=== PATIENT | female | born 1970 | race Caucasian/White ===

== ENCOUNTER 2016-11-29 20:33 | Inpatient (IN) | payer OTHER ==
[~2016-11-29] VITALS: Ht 167.6 cm; Wt 81.6 kg
--- NOTE | ~2016-11-29 | PN ---
Unit #: [id number] #: [id number] Patient: EDNA PERALES [id number] [facility] [address] [place] [address] [id number] I MR#: [id number] NAME: EDNA PERALES ROOM: P125 Age: 46 Sex: F Admission Date: 11/29/2016 : 1970 Attending Physician: Americo Booker M.D. Admitting Physician: Americo Booker M.D. Primary Care Physician: Primary Care Physician Isabel BANKS PROGRESS NOTES DATE 12/01/2016 DISCUSSION The patient remains floridly psychotic but has tolerating upper titration of Zyprexa without complaint. We may need to consider further upper titration as the patient had previously done well at a maximum dose of Zyprexa. The patient appears (1) ____ distressed by her psychotic symptoms. Dictated by... Americo Booker M.D. CB/damir TD: 12/02/2016 01:20 JOB #: [id number] [facility] PROGRESS NOTES Page 1 of 1 X Americo Booker MD PROGRESS NOTE
--- NOTE | ~2016-11-29 | HP ---
Unit #: [id number] #: [id number] Patient: DIAZDENA SHELIA [id number] [place] [address] [id number] I MR#: [id number] NAME: EDNA PERALES ROOM: P125 Age: 46 Sex: F Admission Date: 11/29/2016 : 1970 Attending Physician: Americo Booker M.D. Admitting Physician: Americo Booker M.D. Primary Care Physician: Primary Care Physician No HISTORY AND PHYSICAL HISTORY OF PRESENT ILLNESS The patient states she does not know why she is here. Per chart, it states that patient's informed staff that she had been hallucinating, hearing voices and stated that she needed an exorcism. PAST MEDICAL HISTORY 1. Significant for hypertension. 2. Anxiety. PAST SURGICAL HISTORY None. ALLERGIES Risperdal. SOCIAL HISTORY Negative. FAMILY HISTORY Noncontributory. REVIEW OF SYSTEMS CONSTITUTIONAL: No fever or chills. HEENT: Denies any sore throat, ear pain or runny nose. CARDIOVASCULAR: Denies chest pain, irregular heart rhythm or palpitations. CHEST: Denies shortness of breath or cough. No hemoptysis. GASTROINTESTINAL: Denies nausea, vomiting, diarrhea or chronic constipation. ENDOCRINE: Denies history of increased thirst or urination. No recent significant weight loss or gain. GENITOURINARY: Denies dysuria, frequency, or hematuria. SKIN: Denies any rashes. HEMATOLOGIC: Denies history of increased bleeding or bruising. MUSCULOSKELETAL: Denies any hot, swollen joints. No generalized muscle pain. NEUROLOGIC: Denies problems with vision or speech. No frequent, severe headaches. No numbness, tingling or weakness in any extremities. Denies loss of bladder or bowel control. CURRENT MEDICATIONS 1. Zyprexa 10 mg p.o. q.h.s. 2. Xanax 1 mg p.o. daily. 3. Gabapentin 800 mg p.o. 4 times daily. Unit #: [id number] #: [id number] Patient: EDNA PERALES 4. Lisinopril 20 mg p.o. daily. 5. Claritin 10 mg p.o. daily. 6. Trazodone 50 mg p.o. q.h.s. PHYSICAL EXAMINATION GENERAL: Alert, oriented, in no acute distress, although somewhat lethargic. VITAL SIGNS: Temperature 98.3, heart rate 76, respirations 16, blood pressure 112/73. HEIGHT: 5 feet 6 inches. WEIGHT: 180 pounds. SKIN: Warm and dry without rash or lesion. An abrasion to her left heel. HEENT: Normocephalic. TMs not viewed. Oral and nasal passages clear. Conjunctivae clear. PERRLA. EOMs intact. NECK: Supple without lymphadenopathy or thyromegaly. HEART: Regular rate and rhythm without murmur. LUNGS: Clear. ABDOMEN: Soft, nontender, without masses or hepatosplenomegaly. : Not done. EXTREMITIES: No evidence of cyanosis, clubbing or edema. Moves all without focal deficit. NEUROLOGICAL: Grossly within normal limits. Cranial Nerves: II: Visual anand are intact. III, IV AND : Extraocular movements are intact. Pupils are equal, round and reactive to light. V: Facial sensation is grossly normal. VII: Facial movements and expression are normal. VIII: Auditory acuity grossly intact. IX, X: Uvula is midline. Phonation is normal. XI: Patient shrugs shoulders and turns head normally. XII: Tongue protrudes in the midline. Sensory and Motor Function: Sensory and motor sensation is grossly normal. Motor: moves all extremities well. Coordination: Gait is normal. Deep Tendon Reflexes: Intact. IMPRESSION Psychiatric admission. RECOMMENDATIONS PSYCHIATRIC: Per psychiatrist. MEDICAL: No contraindication to participate in facility's activities. MEDICAL PROGNOSIS Good. Dictated by... Mary Alice Shelley/beulah TD: 11/30/2016 19:38 JOB #: [id number] Unit #: [id number] #: [id number] Patient: DIAZAugust HISTORY AND PHYSICAL Page 1 of 1 X Priscilla Judd APR X HISTORY AND PHYSICAL
--- NOTE | ~2016-11-29 | DS ---
Unit #: [id number] #: [id number] Patient: EDNA PERALES [id number] [place] [address] [id number] I MR#: [id number] NAME: EDNA PERALES ROOM: P125 Age: 46 Sex: F Admission Date: 11/29/2016 : 1970 Discharge Date: 12/06/2016 Attending Physician: Americo Booker M.D. Primary Care Physician: Primary Care Physician No DISCHARGE SUMMARY REASON FOR ADMISSION The patient is a 46-year-old white female with a history of schizoaffective disorder admitted with worsening symptoms of depression and auditory hallucinations. HOSPITAL COURSE The patient was admitted to the [address] [place] [address] and placed on suicide precautions. She complained of severe anxiety and ongoing psychotic symptoms. Zyprexa was rapidly re-titrated to a dose of 30 mg, the dose which had previously addressed the patient's psychotic symptoms. 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 By 12/06, the patient appeared greatly improved. She was agreeable with plan for follow up through auspices of [facility]. The patient was seen during her hospitalization regarding an infected carbuncle on her buttock and was prescribed Keflex for that condition. DISCHARGE DIAGNOSIS Schizoaffective disorder. DISCHARGE MEDICATIONS The patient is discharged on the following medications: 1. Zestril 20 mg daily for hypertension. 2. Claritin 10 mg daily for environmental allergies. 3. Desyrel 50 mg at h.s. p.r.n. insomnia. 4. Xanax 1 mg daily for anxiety. 5. Zyprexa 30 mg at bedtime for psychosis. 6. Keflex 500 mg t.i.d. for skin infection. 7. Neurontin 1200 mg 4 times daily for anxiety. PROGNOSIS Fair. DIET AND ACTIVITY No dietary or physical restrictions placed on the patient at time of discharge. She will follow through the auspices of "[facility]". Dictated by... Unit #: [id number] #: [id number] Patient: EDNA PERALES Americo Booker M.D. CB/beulah TD: 12/06/2016 15:27 JOB #: [id number] DISCHARGE SUMMARY Page 1 of 1 X Americo Booker MD DISCHARGE SUMMARY
--- NOTE | ~2016-11-29 | PN ---
Unit #: [id number] #: [id number] Patient: EDNA PERALES [id number] [facility] [address] [place] [address] [id number] I MR#: [id number] NAME: EDNA PERALES ROOM: P125 Age: 46 Sex: F Admission Date: 11/29/2016 : 1970 Attending Physician: Americo Booker M.D. Admitting Physician: Americo Booker M.D. Primary Care Physician: Primary Care Physician Isabel BANKS PROGRESS NOTES DATE 12/05/2016 DISCUSSION The patient is reporting significant reduction in psychotic symptoms and appears much brighter. Should she sustain progress, discharge should likely take place as early as tomorrow. Dictated by... Americo Booker M.D. CB/beulah TD: 12/05/2016 16:18 JOB #: [id number] [facility] PROGRESS NOTES Page 1 of 1 X Americo Booker MD X PROGRESS NOTE
--- NOTE | ~2016-11-29 | PN ---
Unit #: [id number] #: [id number] Patient: EDNA PERALES [id number] [facility] [address] [place] [address] [id number] I MR#: [id number] NAME: EDNA PERALES ROOM: P125 Age: 46 Sex: F Admission Date: 11/29/2016 : 1970 Attending Physician: Americo Booker M.D. Admitting Physician: Americo Booker M.D. Primary Care Physician: Primary Care Physician Isabel BANKS PROGRESS NOTES DATE 12/03/2016 DISCUSSION The patient's dose of Zyprexa has been increased to 30 mg. She seems to be tolerating the medication without complaint. She continues to complain of anger and anxiety, and we may need to consider upward titration of Neurontin as our next pharmacologic step. Dictated by... Americo Booker M.D. CB/dominik TD: 12/03/2016 14:03 JOB #: [id number] [facility] PROGRESS NOTES Page 1 of 1 X Americo Booker MD PROGRESS NOTE
--- NOTE | ~2016-11-29 | PA ---
Unit #: [id number] #: [id number] Patient: EDNA PERALES [id number] [place] [address] [id number] I MR#: [id number] NAME: EDNA PERALES ROOM: P125 Age: 46 Sex: F Admission Date: 11/29/2016 : 1970 Date of Assessment: 11/30/2016 Attending Physician: Americo Booker M.D. Admitting Physician: Americo Booker M.D. Primary Care Physician: Primary Care Physician No PSYCHIATRIC ASSESSMENT IDENTIFYING INFORMATION The patient is a 46-year-old white female admitted to the hospital with worsening symptoms of psychosis and paranoia. CHIEF COMPLAINT "They have video of me doing things." HISTORY OF PRESENT ILLNESS The patient is a 46-year-old white female with a history of schizoaffective disorder. She was last hospitalized at this facility in December of 2015. The patient's family has reported that the patient has been hearing "evil voices" and has been angry and cussing out her family. The patient reports to this physician today that her family has "videotape of me doing things" but does not elaborate. When last discharged from this facility, the patient was on an aggressive dose of olanzapine 30 mg. The dose of this medication has been reduced to 10 mg at this time. An upward titration would appear to be warranted. For more complete history of present illness, please refer to previously dictated notes. PAST PSYCHIATRIC HISTORY Reviewed, no changes. PAST MEDICAL HISTORY Reviewed, no changes. MEDICATIONS Zyprexa, Xanax, gabapentin, lisinopril, Claritin, and trazodone. ALLERGIES Risperdal. FAMILY HISTORY Reviewed, no changes. SOCIAL HISTORY Reviewed, no changes. MENTAL STATUS EXAMINATION Examination at this time reveals the patient to be a well-developed well-nourished somewhat disheveled white female appearing somewhat older than stated age. She is in no apparent physical distress at the time of examination. She is awake, alert, and oriented in all spheres. Her mood is dysphoric, her affect is flat. Speech is impoverished. There are no Unit #: [id number] #: [id number] Patient: EDNA PERALES gross deficits in memory or cognition are noted. Intelligence is judged to be in the average range based on fund of knowledge. The patient is cooperative throughout the interview. She denies suicidal or homicidal ideation but reports significant symptoms of paranoia. Her judgment and insight appear to be significantly impaired. ASSETS AND LIABILITIES The patient's assets: Motivation for change. Liabilities: Chronicity and severity of illness. DIAGNOSTIC IMPRESSION Schizoaffective disorder. TREATMENT PLAN The patient remains hospitalized for safety and stabilization. We will increase the patient's Zyprexa to 20 mg, and further upward titration may need to be considered. Other medications will be continued. ESTIMATED LENGTH OF STAY 5 to 7 days. Dictated by... Americo Booker M.D. GLENYS/dominik TD: 11/30/2016 14:16 JOB #: [id number] PSYCHIATRIC ASSESSMENT Page 1 of 1 X Americo Booker MD X PSYCHIATRIC ASSESSMENT
--- NOTE | ~2016-11-29 | PN ---
Unit #: [id number] #: [id number] Patient: EDNA PERALES [id number] [facility] [address] [place] [address] [id number] I MR#: [id number] NAME: EDNA PERALES ROOM: P125 Age: 46 Sex: F Admission Date: 11/29/2016 : 1970 Attending Physician: Americo Booker M.D. Admitting Physician: Americo Booker M.D. Primary Care Physician: Primary Care Physician Isabel BANKS PROGRESS NOTES DATE 12/04/2016 DISCUSSION The patient reports some reduction in auditory hallucinations and paranoia with the rapid upward titration of Zyprexa but continues to complain of severe anxiety. She requests an increase in her Zyprexa, and we will go ahead and maximize her dose at 1200 mg 4 times daily. Dictated by... Americo Booker M.D. CB/dominik TD: 12/04/2016 14:43 JOB #: [id number] [facility] PROGRESS NOTES Page 1 of 1 X Americo Booker MD PROGRESS NOTE
--- NOTE | ~2016-11-29 | PN ---
Unit #: [id number] #: [id number] Patient: EDNA PERALES [id number] [facility] [address] [place] [address] [id number] MR#: [id number] NAME: EDNA PERALES ROOM: P125 Age: 46 Sex: F Admission Date: 11/29/2016 : 1970 Attending Physician: Americo Booker M.D. Admitting Physician: Americo Booker M.D. Primary Care Physician: Primary Care Physician Isabel GREEN NOTES DATE OF SERVICE 12/02/2016 DISCUSSION The patient continues to complain of severe anxiety, auditory hallucinations and appears generally distressed by these symptoms. We will go ahead with a dosage increase to 30 mg of Zyprexa in the evening. Dictated by... Americo Booker M.D. CB/damir TD: 12/02/2016 23:28 JOB #: [id number] [facility] GREEN NOTES Page 1 of 1 X Americo Booker MD PROGRESS NOTE
--- NOTE | ~2016-11-29 | CO ---
Unit #: [id number] #: [id number] Patient: EDNA PERALES [id number] [place] [address] [id number] I MR#: [id number] NAME: EDNA PERALES ROOM: [facility] Age: 46 Sex: F Admission Date: 11/29/2016 : 1970 Attending Physician: Americo Booker M.D. Primary Care Physician: Primary Care Physician No Consultation Date: 12/03/2016 CONSULTATION REPORT HISTORY OF PRESENT ILLNESS August reports that yesterday she was using the bathroom and noticed a boil on the right side of her butt. Then, this morning, she has had some pain as well. She has no history of boils and not noticed any oozing of fluid and no bleeding. She has no other complaints. PHYSICAL EXAMINATION CARDIAC: Regular rate and rhythm. No murmurs, gallops, or rubs. RESPIRATORY: Clear to auscultation bilaterally. SKIN: 1 cm boil on right buttocks with redness and no induration. ASSESSMENT AND PLAN Boil. We will begin Keflex 500 mg p.o. t.i.d. for 10 days. The patient was instructed to compress area during showers to allow warm water to run over the boil and to follow up with her primary care provider. Dictated by... Mary Alice Reese/delia TD: 12/04/2016 03:24 JOB #: [id number] CONSULTATION REPORT Page 1 of 1 X SONY NINA APRN X CONSULTATION REPORT
[~2016-11-29 20:33] MED LIST: ALBUTEROL17 GM INH; ALPRAZOLAM PO; CIPRO PO; KLONOPIN PO; MOBIC PO; NEURONTIN300 MG PO; PHENERGAN25 M1 PO; PREDNISONE PO; PREVACID SOLUTA30 M1 PO; ZITHROMAX PO; ZYPREXA PO
[2016-12-01 12:09] LABS: BASOPHIL% 0.2 % (0-2.5); DIFF IND NO; EOSINOPHIL# 0.2 X10e3 (0-0.7); EOSINOPHIL% 1.5 % (0.0-7.0); HEMATOCRIT 40.5 % (35.0-45.0); HEMOGLOBIN 13.3 gm/dL (12.0-16.0); LYMPHOCYTE# 1.5 X10e3 (1.0-3.5); MEAN CELL VOLUME 93.7 FL (83-96); MEAN CORPUSCULAR HEMOGLOBIN 30.8 PG (28-34); MEAN CORPUSCULAR HGB CONC 32.9 g/dL (30-36); MEAN PLATELET VOLUME 8.2 FL (6.5-11.5); MONOCYTE# 0.6 X10e3 (0-1.0); MONOCYTE% 5.7 % (3.0-12.0); NEUTROPHIL# 7.7 X10e3 (1.5-7.1); NEUTROPHIL% 77.6 % (40-75); PLATELET COUNT 252 X10e3 (140-420); RED BLOOD COUNT 4.33 X10e (3.90-5.30); RED CELL DISTRIBUTION WIDTH 12.8 % (11.0-15.5)
[2016-12-01 12:32] LABS: BILIRUBIN,TOTAL 0.5 mg/dL (0.2-2.0); BUN/CREATININE RATIO 22.5; CALCIUM SERUM 9.3 mg/dL (8.4-10.2); CREATININE SERUM 0.8 mg/dL (0.6-1.4); GLOM FILT RATE Estimated 89.7 mL/min (>60); POTASSIUM 4.4 mmol/L (3.5-5.1); PROTEIN TOTAL SERUM 6.8 g/dL (6.0-8.3)
== END 2016-12-06 15:46 | disposition home or self-care (01) | DRG 885 ==
LOC: P1S 23:08
PROVIDERS: Specialist
DX: F25.9 Schizoaffective disorder, unspecified (principal); I10 Essential (primary) hypertension; F41.9 Anxiety disorder, unspecified; L02.32 Furuncle of buttock
CPT/HCPCS: 80053; 84703; 85025